=== PATIENT | female | born 1955 | race Two or more races ===

== ENCOUNTER 2022-12-21 05:25 | Day surgery (SDC) | payer OTHER ==
[~2022-12-21 05:25] MED LIST: VASOTEC5 MG PO
== END 2022-12-21 10:00 | disposition home or self-care (01) ==
LOC: CIR.AMB 05:25
PROVIDERS: ATTEND Surgery Surgery of the Hand
DX: M65.841 Other synovitis and tenosynovitis, right hand (principal); Z20.822 Contact with and (suspected) exposure to COVID-19; I10 Essential (primary) hypertension